=== PATIENT | female | born 1945 | race Caucasian/White ===

== ENCOUNTER 2018-08-30 13:59 | Emergency (ER) | payer MEDICAID ==
[2018-08-30 14:52] LABS: ADD UMIC NO; UR ASCORBIC ACID NEGATIVE (NEGATIVE); UR BILIRUBIN (Dip) NEGATIVE (NEGATIVE); UR BLOOD (Dip) NEGATIVE (NEGATIVE); UR CLARITY CLEAR (CLEAR); UR COLOR YELLOW (YELLOW); UR GLUCOSE (Dip) NEGATIVE (NEGATIVE); UR KETONES (Dip) NEGATIVE (NEGATIVE); UR LEUKOCYTE ESTERASE (Dip) NEGATIVE Leu/ul (NEGATIVE); UR NITRITE (Dip) NEGATIVE (NEGATIVE); UR SPECIFIC GRAVITY (Dip) 1.016 (1.003-1.030); UR TOTAL PROTEIN (Dip) NEGATIVE (NEGATIVE); UR UROBILINOGEN (Dip) NEGATIVE (NEGATIVE)
[2018-08-30] MEDS: ACETAMINOPHEN 325 MG TAB PO (15:35)
== END 2018-08-30 16:48 | disposition home or self-care (01) ==
LOC: FTE 13:59
DX: R10.2 Pelvic and perineal pain (principal); I10 Essential (primary) hypertension
CPT/HCPCS: 74176; 81003; 99284-25

== ENCOUNTER 2018-10-02 19:53 | Emergency (ER) | payer MEDICAID ==
[2018-10-02] MEDS: KETOROLAC 30 MG INJ IM (21:45)
[2018-10-02] MEDS: BACITRACIN 0.9 GM OINT TOP (21:56)
== END 2018-10-02 22:32 | disposition home or self-care (01) ==
LOC: FTE 19:53
DX: S80.212A Abrasion, left knee, initial encounter (principal); I10 Essential (primary) hypertension; S69.91XA Unspecified injury of right wrist, hand and finger(s), initial encounter; S80.211A Abrasion, right knee, initial encounter; S70.311A Abrasion, right thigh, initial encounter; W01.0XXA Fall on same level from slipping, tripping and stumbling without subsequent striking against object, initial encounter; Y92.9 Unspecified place or not applicable; Z86.73 Personal history of transient ischemic attack (TIA), and cerebral infarction without residual deficits
CPT/HCPCS: 73090; 73090-RT; 73110-RT; 73562; 96372; 99284-25

== ENCOUNTER 2018-11-13 18:46 | Observation (INO) | payer MEDICAID ==
[2018-11-13 19:24] LABS: ADD MAN DIFF? NO
[2018-11-13 19:30] LABS: WHITE BLOOD COUNT 8.2 10^3/ul (4.8-10.8)
[2018-11-13 19:30] LABS: BASOPHILS % 0.2 % (0.0-2.0); EOSINOPHILS # 0.2 10^3/ul (0.0-0.5); EOSINOPHILS % 2.2 % (0.0-7.0); HEMATOCRIT 34.7 % (37.0-47.0); HEMOGLOBIN 11.8 g/dl (12.0-16.0); LYMPHOCYTES # 3.7 10^3/ul (0.8-2.9); MEAN CORPUSCULAR HEMOGLOBIN 31.6 pg (29.0-33.0); MEAN PLATELET VOLUME 9.3 fl (7.4-10.4); MONOCYTE # 0.6 10^3/ul (0.3-0.9); NEUTROPHIL # 3.7 10^3/ul (1.6-7.5); NEUTROPHILS % 45.2 % (39.0-77.0); PLATELET COUNT 309 10^3/UL (140-415); RED BLOOD COUNT 3.73 10^6/ul (4.20-5.40); RED CELL DISTRIBUTION WIDTH 12.1 % (11.5-14.5)
[2018-11-13] MEDS: ONDANSETRON 4 MG INJ IV (19:33)
[2018-11-13] MEDS: NITROGLYCERIN 2% 1 GM OINT PKT TD (19:33)
[2018-11-13] MEDS: ASPIRIN 325 MG TAB PO (19:33)
[2018-11-13] MEDS: morphine 4 MG/ML VIAL IV (19:34)
[2018-11-13 19:53] LABS: ALANINE AMINOTRANSFERASE 33 IU/L (13-69); ALBUMIN 4.5 g/dl (3.3-4.9); ALBUMIN/GLOBULIN RATIO 1.15; ALKALINE PHOSPHATASE 81 IU/L (42-121); ANION GAP 10 (5-13); ASPARTATE AMINO TRANSFERASE 29 IU/L (15-46); BILIRUBIN,INDIRECT 0.3 mg/dl (0-1.1); BILIRUBIN,TOTAL 0.3 mg/dl (0.2-1.3); BLOOD UREA NITROGEN 27 mg/dl (7-20); CALCIUM 9.7 mg/dl (8.4-10.2); CARBON DIOXIDE 24 mmol/L (21-31); CHLORIDE 103 mmol/L (97-110); CREATININE 1.06 mg/dl (0.44-1.00); GLUCOSE 89 mg/dl (70-220); POTASSIUM 4.4 mmol/L (3.5-5.1); SODIUM 137 mmol/L (135-144); TOTAL PROTEIN 8.4 g/dl (6.1-8.1)
[2018-11-13 20:04] LABS: TROPONIN-I < 0.012 ng/ml (0.000-0.120)
[2018-11-13] MEDS ORDERED: BISACODYL (EC) 5 MG TAB PO (21:30)
[2018-11-13] MEDS ORDERED: NACL 0.9% 3 ML SYG IV (21:30)
[2018-11-13] MEDS ORDERED: ONDANSETRON 4 MG INJ IV ×2 (21:30→22:00)
[2018-11-13] MEDS ORDERED: DOCUSATE SODIUM 100 MG CAP PO (21:30)
[2018-11-13] MEDS ORDERED: NITROGLYCERIN (SL) 0.4 MG TAB SL (21:30)
[2018-11-13] MEDS ORDERED: morphine 2 MG INJ IV (21:30)
[2018-11-13] MEDS ORDERED: ACETAMINOPHEN 325 MG TAB PO (22:00)
[2018-11-13 22:31] LABS: CREATINE KINASE 102 IU/L (23-200)
[2018-11-13 22:44] LABS: CK INDEX 0.6; CK-MB 0.57 ng/ml (0.0-2.4); TROPONIN-I < 0.012 ng/ml (0.000-0.120)
[2018-11-14 03:44] LABS: ADD MAN DIFF? NO
[2018-11-14 04:00] LABS: WHITE BLOOD COUNT 6.9 10^3/ul (4.8-10.8)
[2018-11-14 04:00] LABS: BASOPHILS % 0.4 % (0.0-2.0); EOSINOPHILS # 0.2 10^3/ul (0.0-0.5); EOSINOPHILS % 2.9 % (0.0-7.0); HEMATOCRIT 34.3 % (37.0-47.0); HEMOGLOBIN 11.5 g/dl (12.0-16.0); LYMPHOCYTES # 3.4 10^3/ul (0.8-2.9); LYMPHOCYTES % 49.3 % (15.0-51.0); MEAN CORPUSCULAR HEMOGLOBIN 31.3 pg (29.0-33.0); MEAN CORPUSCULAR HGB CONC 33.5 g/dl (32.0-37.0); MEAN CORPUSCULAR VOLUME 93.2 fl (82.0-101.0); MEAN PLATELET VOLUME 9.1 fl (7.4-10.4); MONOCYTE # 0.6 10^3/ul (0.3-0.9); MONOCYTES % 8.6 % (0.0-11.0); NEUTROPHIL # 2.7 10^3/ul (1.6-7.5); NEUTROPHILS % 38.7 % (39.0-77.0); PLATELET COUNT 277 10^3/UL (140-415); RED BLOOD COUNT 3.68 10^6/ul (4.20-5.40); RED CELL DISTRIBUTION WIDTH 12.2 % (11.5-14.5)
[2018-11-14 04:02] LABS: CREATINE KINASE 90 IU/L (23-200)
[2018-11-14 04:03] LABS: ALBUMIN 3.9 g/dl (3.3-4.9); ALKALINE PHOSPHATASE 53 IU/L (42-121); ANION GAP 9 (5-13); ASPARTATE AMINO TRANSFERASE 22 IU/L (15-46); BILIRUBIN,INDIRECT 0.4 mg/dl (0-1.1); BILIRUBIN,TOTAL 0.4 mg/dl (0.2-1.3); BLOOD UREA NITROGEN 22 mg/dl (7-20); CALCIUM 9.7 mg/dl (8.4-10.2); CARBON DIOXIDE 26 mmol/L (21-31); CHLORIDE 105 mmol/L (97-110); CHOL/HDL RATIO 4.2 RATIO; CHOLESTEROL 176 mg/dl (100-200); CREATININE 1.02 mg/dl (0.44-1.00); GLUCOSE 94 mg/dl (70-220); HDL CHOLESTEROL 41 mg/dl (33-92); LDL CHOLESTEROL,CALCULATED 103 mg/dl; MAGNESIUM 1.9 mg/dl (1.7-2.5); POTASSIUM 4.5 mmol/L (3.5-5.1); SODIUM 140 mmol/L (135-144); TOTAL PROTEIN 6.9 g/dl (6.1-8.1); TRIGLYCERIDES 160 mg/dl (0-149)
[2018-11-14 04:04] LABS: ALANINE AMINOTRANSFERASE 26 IU/L (13-69)
[2018-11-14 04:13] LABS: CK INDEX 0.6; CK-MB 0.57 ng/ml (0.0-2.4)
[2018-11-14 04:16] LABS: TROPONIN-I < 0.012 ng/ml (0.000-0.120)
[2018-11-14] MEDS: ASPIRIN (EC) 81 MG TAB PO (08:30)
[2018-11-14] MEDS: HYDROCHLOROTHIAZIDE 25 MG TAB PO (08:31)
[2018-11-14 08:58] LABS: FREE T3 3.85 pg/ml (2.77-5.27)
[2018-11-14] MEDS ORDERED: ASPIRIN 81 MG TAB PO (09:00)
[2018-11-14 09:48] LABS: CREATINE KINASE 94 IU/L (23-200)
[2018-11-14 10:01] LABS: CK INDEX 0.6; CK-MB 0.56 ng/ml (0.0-2.4); TROPONIN-I < 0.012 ng/ml (0.000-0.120)
[2018-11-14] MEDS ORDERED: DEXTROSE 50% 50 ML SYRINGE IV ×2 (10:30)
[2018-11-14] MEDS ORDERED: GLUCOSE GEL 15 GRAM TUBE BUCCAL (10:30)
[2018-11-14] MEDS ORDERED: GLUCAGON 1 MG INJ IM (10:30)
[2018-11-14] MEDS ORDERED: GLUCOSE GEL 15 GRAM TUBE PO ×2 (10:30)
[2018-11-14] MEDS: INSULIN ASPART [NOVOLOG] 3 ML PEN SC ×3 (11:50→21:00)
[2018-11-14] MEDS: PANTOPRAZOLE (EC) 40 MG TAB PO (12:27)
[2018-11-14] MEDS: GABAPENTIN 300 MG CAP PO ×2 (12:27→21:05)
[2018-11-14] MEDS: LIDOCAINE/MYLANTA 40 ML BTL PO (12:27)
[2018-11-14 15:28] LABS: CREATINE KINASE 92 IU/L (23-200)
[2018-11-14 15:40] LABS: CK INDEX 0.5; TROPONIN-I < 0.012 ng/ml (0.000-0.120)
[2018-11-14] MEDS: ERGOCALCIFEROL 50,000 UNIT CAP PO (17:12)
[2018-11-14] MEDS: ATORVASTATIN 20 MG TAB PO (21:05)
[2018-11-15] MEDS: ACCU-CHEK XX (02:00)
[2018-11-15] MEDS: ACETAMINOPHEN 325 MG TAB PO (04:12)
[2018-11-15] MEDS: NAPROXEN 500 MG TAB PO (04:47)
[2018-11-15] MEDS: PANTOPRAZOLE (EC) 40 MG TAB PO (05:34)
[2018-11-15 07:11] LABS: ANION GAP 10 (5-13); BLOOD UREA NITROGEN 21 mg/dl (7-20); CALCIUM 9.5 mg/dl (8.4-10.2); CARBON DIOXIDE 26 mmol/L (21-31); CHLORIDE 102 mmol/L (97-110); CREATININE 1.02 mg/dl (0.44-1.00); GLUCOSE 100 mg/dl (70-220); POTASSIUM 4.4 mmol/L (3.5-5.1); SODIUM 138 mmol/L (135-144)
[2018-11-15] MEDS: INSULIN ASPART [NOVOLOG] 3 ML PEN SC (07:55)
[2018-11-15] MEDS: ASPIRIN (EC) 81 MG TAB PO (10:09)
[2018-11-15] MEDS: GABAPENTIN 300 MG CAP PO (10:09)
[2018-11-15] MEDS: HYDROCHLOROTHIAZIDE 25 MG TAB PO (10:09)
== END 2018-11-15 11:27 | disposition home or self-care (01) ==
LOC: E/R 18:46 → TEL 21:28
DX: R07.89 Other chest pain (principal); R10.13 Epigastric pain; K21.9 Gastro-esophageal reflux disease without esophagitis; E11.40 Type 2 diabetes mellitus with diabetic neuropathy, unspecified; I10 Essential (primary) hypertension; E78.5 Hyperlipidemia, unspecified; N17.9 Acute kidney failure, unspecified; E03.9 Hypothyroidism, unspecified; D25.9 Leiomyoma of uterus, unspecified; F41.9 Anxiety disorder, unspecified; D64.9 Anemia, unspecified; Z86.73 Personal history of transient ischemic attack (TIA), and cerebral infarction without residual deficits; Z79.82 Long term (current) use of aspirin; Z79.84 Long term (current) use of oral hypoglycemic drugs
CPT/HCPCS: 36415; 71045; 74176; 80048; 80053; 80061; 82306; 82550; 82553; 82607; 82652; 82962; 83036; 83735; 84439; 84443; 84481; 84484; 85025; 93005; 93306; 96374; 96375; 99285-25; G0378